=== PATIENT | female | born 1990 | race African-American/Black ===

== ENCOUNTER 2019-12-15 05:45 | Day surgery (SDC) | payer OTHER, SELFPAY ==
[2019-12-08 08:59] LABS: BASOPHILS % (AUTO) 0.5 % (0.0-2.0); EOSINOPHILS # (AUTO) 0.1 K/uL (0-0.4); EOSINOPHILS % (AUTO) 1.5 % (0.0-4.0); HEMATOCRIT 40.8 % (36-48); HEMOGLOBIN 13.4 g/dL (12.0-16.0); LYMPHOCYTES # (AUTO) 1.8 K/uL (2.5-16.5); LYMPHOCYTES % (AUTO) 28.9 % (20.5-51.1); MEAN CORPUSCULAR HEMOGLOBIN 29 pg (27-31); MEAN CORPUSCULAR HGB CONC 33 g/dL (33-37); MEAN CORPUSCULAR VOLUME 89.3 fL (80-94); MONOCYTES # (AUTO) 0.6 K/uL (0.8-1.0); MONOCYTES % (AUTO) 9.4 % (1.7-9.3); NEUTROPHILS # (AUTO) 3.6 K/uL (1.8-7.7); NEUTROPHILS % (AUTO) 59.7 % (42.2-75.2); PLATELET COUNT (AUTO) 218 K/uL (140-450); RED BLOOD CELL COUNT(AUTO) 4.57 MIL/uL (4.20-5.40); RED CELL DISTRIBUTION WIDTH 13.1 % (11.6-13.7); WHITE BLOOD COUNT (AUTO) 6.1 K/uL (4.8-10.8)
[2019-12-08 10:15] LABS: ALBUMIN 3.7 g/dL (3.4-5.0); ANION GAP 12.7 (8-16); CARBON DIOXIDE 25.7 mmol/L (21-32); CREATININE 0.9 mg/dL (0.6-1.3); POTASSIUM 4.4 mmol/L (3.5-5.1); TOTAL BILIRUBIN 0.7 mg/dL (0.0-1.0)
[~2019-12-15] VITALS: Ht 157.5 cm; Wt 83.0 kg
[2019-12-15] MEDS ORDERED: NACL 0.9% 1,000 ML IV SCH (07:18)
[2019-12-15] MEDS ORDERED: HYDROmorphone 1 MG/ML AMP IVP PRN (07:20)
[2019-12-15] MEDS ORDERED: ONDANSETRON 4 MG/2 ML VIAL IVP PRN (07:20)
[2019-12-15] MEDS ORDERED: MEPERIDINE 25 MG/ML SYR IVP PRN (07:20)
[2019-12-15] MEDS ORDERED: SEVOFLURANE 250 ML BTL INH ONE (07:26)
[2019-12-15] MEDS ORDERED: PROPOFOL 200 MG/20 ML VIAL IV ONE (07:26)
[2019-12-15] MEDS ORDERED: SUCCINYLCHOLINE CHLORIDE 200 MG/10 ML VIAL IVP ONE (07:26)
[2019-12-15] MEDS ORDERED: ROCURONIUM 50 MG/5 ML VIAL IV ONE (07:26)
== END 2019-12-15 09:25 | disposition home or self-care (01) ==
LOC: MDS 05:45 → MFCC 05:54 → MDS 09:25
PROVIDERS: ATTEND Obstetrics & Gynecology
DX: N87.9 Dysplasia of cervix uteri, unspecified (principal); Z20.828 Contact with and (suspected) exposure to other viral communicable diseases; I10 Essential (primary) hypertension; Z88.8 Allergy status to other drugs, medicaments and biological substances; Z98.890 Other specified postprocedural states
CPT/HCPCS: 36415; 57522; 80053; 81025; 84702; 85025; J0330; J2704; J3490; U0003